=== PATIENT | female | born 1940 | race African-American/Black ===

== ENCOUNTER 2017-03-21 10:32 | Inpatient (IN) | payer MEDICARE, MEDICAID ==
[~2017-03-21] VITALS: Ht 157.5 cm; Wt 72.6 kg
[2017-03-21] MEDS ORDERED: NS 250 ML IV ONE (10:41)
[2017-03-21] MEDS ORDERED: MULTIVITAMINS1 EAC8 ORAL (10:45)
[2017-03-21] MEDS ORDERED: TRADJENTA5 MG PO (10:45)
[2017-03-21] MEDS ORDERED: LEVOTHYROXINE25 MCG ORAL (10:45)
[2017-03-21] MEDS ORDERED: METFORMIN HCL500 M1 ORAL (10:45)
[2017-03-21] MEDS ORDERED: AMARYL1 MG ORAL (10:45)
[2017-03-21] MEDS ORDERED: NAMENDA10 MG ORAL (10:45)
[2017-03-21] MEDS ORDERED: NORVASC5 MG ORAL (10:45)
[2017-03-21] MEDS ORDERED: CATAPRES0.1 MG ORAL (10:47)
[2017-03-21] MEDS ORDERED: BENADRYL25 MG ORAL (10:47)
[2017-03-21] MEDS ORDERED: RIVASTIGMINE1.5 MG PO (10:47)
[2017-03-21] MEDS ORDERED: FAMOTIDINE20 MG ORAL (10:47)
[2017-03-21 10:59] LABS: MEAN CORPUSCULAR HEMOGLOBIN 26.4 PG (27.0-31.0); MEAN CORPUSCULAR HGB CONC 30.6 G/DL (32.0-36.0); MEAN CORPUSCULAR VOLUME 86 FL (80-99); MEAN PLATELET VOLUME 14.1 FL (6.5-10.1); PLATELET COUNT 90 K/UL (150-450); RED CELL DISTRIBUTION WIDTH 13.4 % (11.6-14.8)
[2017-03-21 11:04] LABS: PROTHROMBIN TIME 10.2 SEC (9.30-11.50)
[2017-03-21 11:08] LABS: ALANINE AMINOTRANSFERASE 13 U/L (3-33); ANION GAP 14 (5-15); ASPARTATE AMINO TRANSFERASE 21 U/L (5-40); CARBON DIOXIDE 26 mEQ/L (20-30); CHLORIDE 99 mEQ/L (98-107); CREATININE 1.1 mg/dL (0.5-0.9); HEMOLYSIS 79; POTASSIUM 4.9 mEQ/L (3.4-4.9); SODIUM 139 mEQ/L (135-145); TOTAL PROTEIN 7.4 g/dL (6.6-8.7)
[2017-03-21 11:11] LABS: TROPONIN I < 0.30 ng/mL (<=0.30)
[2017-03-21 11:20] LABS: CKMB 2.9 ng/mL (< 3.8)
[2017-03-21 11:22] VITALS: BP 125/30
[2017-03-21 11:31] LABS: CALCIUM 9.5 mg/dL (8.6-10.2)
[2017-03-21 11:44] LABS: BASOPHILS % (MANUAL) 1 % (0-2); EOSINOPHILS % (MANUAL) 3 % (0-3); LYMPHOCYTES % (MANUAL) 21 % (20-45); NEUTROPHILS % (MANUAL) 70 % (45-75); PLATELET CLUMPS 2+; TOTAL CELLS COUNTED 100
[2017-03-21 11:45] LABS: ANISOCYTOSIS 1+; BAND NEUTROPHILS % (MANUAL) 0 % (0-8); PLATELET ESTIMATE ADEQUATE; PLATELET MORPHOLOGY NORMAL
[2017-03-21 11:46] LABS: HYPOCHROMASIA 1+
[2017-03-21 12:36] VITALS: BP 144/98
--- NOTE | 2017-03-21 13:32 | Diagnostic Imaging Report ---
Indication: Chest pain Technique: One view of the chest Comparison: none Findings: Lungs and pleural spaces are clear. Heart size is normal. Cholecystectomy clips are again demonstrated. No significant interim change Impression: No acute process
[2017-03-21 15:13] VITALS: BP 126/91
[2017-03-21] MEDS: metFORMIN 500mg tab ORAL SCH (16:30)
--- NOTE | 2017-03-21 16:36 | Emergency Room Report ---
History of Present Illness General Chief Complaint: Abnormal Labs Source: Medical Record Present Illness HPI 76-year-old female presents ED for evaluation. Patient noted to have low platelets on glass of blood work. [facility] in shelter. Patient referred here by PMD Dr. Baeza. On arrival patient showing no complaints. No signs of distress. No recent change in medications. No signs of head injury. No evidence of bruising. Patient has dementia and is unable to provide any additional history at this time. No other aggravating relieving factors. Denies any other associated symptoms Allergies: Coded Allergies: IODINE (Verified Allergy, Unknown, 03/21/17) SHELLFISH DERIVED (Verified Allergy, Unknown, 03/21/17) Uncoded Allergies: IV DYE (Allergy, Unknown, 03/21/17) Patient History Past Medical History: DM, HTN, CAD, dementia, psych hx Past Surgical History: none Pertinent Family History: none Social History: Denies: alcohol use, drug use, smoking Now: No Immunizations: UTD Reviewed Nursing Documentation: PMH: Agreed, PSxH: Agreed Nursing Documentation-PMH Past Medical History: No History, Except For Hx Cardiac Problems: Yes - Heart disease, hypercholesterolemia, cataract Hx Hypertension: Yes - Hypothyroidism Hx Diabetes: Yes History Of Psychiatric Problem: Yes - Scz, major depression Hx Neurological Problems: Yes - Alzheimer's disease, Dementia Hx Dementia: Yes Hx Alzheimer's Disease: Yes Review of Systems All Other Systems: negative except mentioned in HPI Physical Exam Vital Signs Date Time Temp Pulse Resp B/P Pulse Ox O2 Delivery O2 Flow Rate FiO2 03/21/17 10:26 98.2 72 16 134/54 99 Room Air Sp02 EP Interpretation: reviewed, normal General Appearance: no apparent distress, non-toxic, other - dementia Head: normocephalic, atraumatic Eyes: bilateral eye PERRL, bilateral eye normal inspection ENT: hearing grossly normal, normal pharynx, no angioedema, normal voice Neck: full range of motion, supple/symm/no masses Respiratory: chest non-tender, lungs clear, normal breath sounds, speaking full sentences Cardiovascular #1: regular rate, rhythm, no edema Cardiovascular #2: 2+ carotid (R), 2+ carotid (L), 2+ radial (R), 2+ radial (L) , 2+ dorsalis pedis (R), 2+ dorsalis pedis (L) Gastrointestinal: normal bowel sounds, non tender, soft, non-distended, no guarding, no rebound Rectal: deferred Genitourinary: normal inspection, no CVA tenderness Musculoskeletal: back normal, gait/station normal, normal range of motion, non- tender Neurologic: other - dementia Psychiatric: other - dementia Reflexes: 3+ bicep (R), 3+ bicep (L), 3+ tricep (R), 3+ tricep (L), 3+ knee (R) , 3+ knee (L) Skin: normal color, no rash, warm/dry, well hydrated Lymphatic: no adenopathy Medical Decision Making Diagnostic Impression: Primary Impression: Thrombocytopenia ER Course 76-year-old female presents ED for referral for abnormal labs. low platelet count Differential-thrombocytopenia, pancytopenia, anemia Patient placed on stretcher. After initial history and physical I ordered labs , IV fluids, chest x-ray Labs-no leukocytosis, hemoglobin/hematocrit stable, platelets 90, electrolytes okay Chest x-ray unremarkable Patient showing no signs of trauma or bruising. No signs of spontaneous bleeding. Case discussed with Dr. Baeza Diagnoses-thrombocytopenia Admitted to floor in serious condition Labs Test 03/21/17 10:45 White Blood Count 8.0 K/UL (4.8-10.8) Red Blood Count 5.00 M/UL (4.20-5.40) Hemoglobin 13.2 G/DL (12.0-16.0) Hematocrit 43.2 % (37.0-47.0) Mean Corpuscular Volume 86 FL (80-99) Mean Corpuscular Hemoglobin 26.4 PG (27.0-31.0) Mean Corpuscular Hemoglobin Concent 30.6 G/DL (32.0-36.0) Red Cell Distribution Width 13.4 % (11.6-14.8) Platelet Count 90 K/UL (150-450) Mean Platelet Volume 14.1 FL (6.5-10.1) Neutrophils (%) (Auto) % (45.0-75.0) Lymphocytes (%) (Auto) % (20.0-45.0) Monocytes (%) (Auto) % (1.0-10.0) Eosinophils (%) (Auto) % (0.0-3.0) Basophils (%) (Auto) % (0.0-2.0) Differential Total Cells Counted 100 Neutrophils % (Manual) 70 % (45-75) Lymphocytes % (Manual) 21 % (20-45) Monocytes % (Manual) 5 % (1-10) Eosinophils % (Manual) 3 % (0-3) Basophils % (Manual) 1 % (0-2) Band Neutrophils 0 % (0-8) Platelet Estimate Adequate Platelet Morphology Normal Clumped Platelets 2+ Red Blood Cell Morphology Hypochromasia 1+ Anisocytosis 1+ Sickle Cells Prothrombin Time 10.2 SEC (9.30-11.50) Prothromb Time International Ratio 1.0 (0.9-1.1) Activated Partial Thromboplast Time 23 SEC (23-33) Sodium Level 139 mEQ/L (135-145) Potassium Level 4.9 mEQ/L (3.4-4.9) Chloride Level 99 mEQ/L (98-107) Carbon Dioxide Level 26 mEQ/L (20-30) Anion Gap 14 (5-15) Blood Urea Nitrogen 20 mg/dL (7-23) Creatinine 1.1 mg/dL (0.5-0.9) Estimat Glomerular Filtration Rate mL/min (>60) Glucose Level 107 mg/dL (74-106) Calcium Level 9.5 mg/dL (8.6-10.2) Total Bilirubin 0.5 mg/dL (0.0-1.2) Aspartate Amino Transf (AST/SGOT) 21 U/L (5-40) Alanine Aminotransferase (ALT/SGPT) 13 U/L (3-33) Alkaline Phosphatase 56 U/L (35-104) Total Creatine Kinase 148 U/L (26-140) Creatine Kinase MB 2.9 ng/mL (< 3.8) Creatine Kinase MB Relative Index 1.9 Troponin I < 0.30 ng/mL (<=0.30) Total Protein 7.4 g/dL (6.6-8.7) Albumin 3.8 g/dL (3.5-5.2) Globulin 3.6 g/dL Albumin/Globulin Ratio 1.0 (1.0-2.7) Chest X-Ray Diagnostic Results EP Interpretation: Yes Findings: no consolidation, no effusion, no pneumothorax, no acute cardiopulmonary disease Number of Views: 1 Last Vital Signs Date Time Temp Pulse Resp B/P Pulse Ox O2 Delivery O2 Flow Rate FiO2 4/26/17 15:13 98.0 83 18 126/91 93 Room Air Status: improved Disposition: ADMITTED INPATIENT Condition: Serious Referrals: Alise Baeza MD (PCP) ROBY CUNNINGHAM M.D. Mar 21, 2017 16:36
[2017-03-21] MEDS: Exelon 1.5mg cap ORAL SCH (18:30)
[2017-03-21] MEDS ORDERED: [UNRECOGNIZED DRUG - REMARK] MISC PRN (20:00)
[2017-03-21 20:28] VITALS: BP 130/78
--- NOTE | 2017-03-22 00:28 | Consultation ---
DATE OF CONSULTATION: 03/21/2017 CONSULTING PHYSICIAN: Navi Douglas M.D. PAST HISTORY: This is a 64-year-old female. The patient has history of multiple medical problems including dementia, hypertension, CAD, and diabetes mellitus. During the evaluation, the patient was a poor historian and was unable to provide any history of impairment of cognition and memory attention. The patient presented with thrombocytopenia. She does not endorse any anxiety, agitation, or aggressive behavior. PAST PSYCHIATRIC HISTORY: History of dementia, has been treated with antipsychotics in the past. PAST MEDICAL HISTORY: Significant for diabetes mellitus, hypertension, and CAD. ALLERGIES: Iodine, shellfish, and IV dye. SUBSTANCE ABUSE HISTORY: No history of illicit drug use or alcohol. Nonsmoker. MENTAL STATUS EXAMINATION: The patient is confused and disoriented. Mood is neutral. Affect is constricted. Congruent with mood. Thought process is concrete. Thought content, no suicidal or homicidal ideation. ASSESSMENT: Lima I Dementia. Lima II Deferred. Lima III Thrombocytopenia. Lima IV Low Lima V Global assessment of functioning is 40. PLAN: 1. The patient is currently on no psychotropics. She is only on Namenda, which is not causing any thrombocytopenia. 2. We will continue to follow and readjust her medication. 3. Provide the patient with supportive therapy and reality orientation. Navi Douglas M.D. DR: JULES JOB#: [id number] CC:
[2017-03-22 00:30] VITALS: BP 127/90
--- NOTE | 2017-03-22 00:38 | History and Physical Report ---
DATE OF ADMISSION: 03/21/2017 REASON FOR ADMISSION: Thrombocytopenia. The patient is a very poor historian, cannot obtain history from the patient, has advanced dementia. At the assisted, the platelet is 49,000. Again, cannot obtain any history from the patient. PAST MEDICAL HISTORY: Hypertension, advanced dementia, GERD, NIDDM, and hypothyroidism. PAST SURGICAL HISTORY: Denies. MEDICATIONS: Multivitamin, metformin, Namenda, Tradjenta, Levoxyl, Amaryl, Pepcid, clonidine. ALLERGIES: Iodine, IV dye, and shellfish. SOCIAL HISTORY: Unable to obtain. FAMILY HISTORY: Unable to obtain. REVIEW OF SYSTEMS: Unable to obtain. PHYSICAL EXAMINATION: VITAL SIGNS: Temperature 98.2 degrees, pulse 72 and blood pressure 134/55. HEENT: PERRLA. NECK: Supple. No lymphadenopathy. CHEST: Clear to auscultation. GASTROINTESTINAL: Soft, nontender and nondistended. No organomegaly. EXTREMITIES: No edema. NEUROLOGIC: Alert and oriented x3. Reflexes on both sides. LABORATORY AND DIAGNOSTIC DATA: WBC 18, hemoglobin 13.2, platelets of 90,000. Sodium 139, potassium 4.9, BUN of 20, creatinine 1.1 and glucose of 107. ASSESSMENT: Thrombocytopenia. The patient has been admitted for thrombocytopenia. Dr. Cartre has been consulted. Dr. Douglas for psychiatric treatment and education. Dr. Carter for etiology of the less platelets at this time. Alise Baeza M.D. DR: HENRY JOB#: [id number] CC:
[2017-03-22 04:00] VITALS: BP 126/77
[2017-03-22] MEDS: Glimepiride 1mg tab ORAL SCH (06:54)
[2017-03-22] MEDS: Levothyroxine 25mcg tab ORAL SCH (06:55)
[2017-03-22] MEDS: metFORMIN 500mg tab ORAL SCH ×3 (06:55→16:24)
[2017-03-22 07:20] LABS: MEAN CORPUSCULAR HEMOGLOBIN 27.2 PG (27.0-31.0); MEAN CORPUSCULAR HGB CONC 31.9 G/DL (32.0-36.0); MEAN CORPUSCULAR VOLUME 86 FL (80-99); MEAN PLATELET VOLUME 14.7 FL (6.5-10.1); PLATELET COUNT 68 K/UL (150-450); RED BLOOD COUNT 4.57 M/UL (4.20-5.40); RED CELL DISTRIBUTION WIDTH 13.4 % (11.6-14.8); WHITE BLOOD COUNT 7.5 K/UL (4.8-10.8)
[2017-03-22 08:00] VITALS: BP 110/71
[2017-03-22] MEDS: Memantine 10mg tab ORAL SCH (08:03)
[2017-03-22] MEDS: Exelon 1.5mg cap ORAL SCH ×2 (08:03→17:12)
[2017-03-22 09:28] LABS: BAND NEUTROPHILS % (MANUAL) 0 % (0-8); BASOPHILS % (MANUAL) 0 % (0-2); EOSINOPHILS % (MANUAL) 0 % (0-3); LYMPHOCYTES % (MANUAL) 33 % (20-45); NEUTROPHILS % (MANUAL) 59 % (45-75); PLATELET ESTIMATE DECREASED; TOTAL CELLS COUNTED 100
[2017-03-22 09:29] LABS: PLATELET CLUMPS 1+
[2017-03-22 09:33] LABS: HYPOCHROMASIA 1+
--- NOTE | 2017-03-22 10:18 | General Progress Note ---
Assessment/Plan Problem List: (1) Thrombocytopenia ICD Codes: D69.6 - Thrombocytopenia, unspecified SNOMED: 385776269 (2) Abnormal laboratory test result ICD Codes: R89.9 - Unspecified abnormal finding in specimens from other organs , systems and tissues SNOMED: 789281107 Status: progressing Assessment/Plan low platelet will discuss w psych and heme/onc re etiology of low platlet Subjective ROS Limited/Unobtainable: Yes Constitutional: Reports: no symptoms Allergies: Coded Allergies: IODINE (Verified Allergy, Unknown, 03/21/17) SHELLFISH DERIVED (Verified Allergy, Unknown, 03/21/17) Uncoded Allergies: IV DYE (Allergy, Unknown, 03/21/17) Objective Last 24 Hour Vital Signs Date Time Temp Pulse Resp B/P Pulse Ox O2 Delivery O2 Flow Rate FiO2 03/22/17 08:03 74 110/71 03/22/17 08:00 97.2 74 18 110/71 97 Room Air 03/22/17 04:00 97.9 65 19 126/77 98 Room Air 03/22/17 00:30 98.7 84 19 127/90 96 Room Air 03/21/17 20:28 98.7 84 19 130/78 96 Room Air 03/21/17 15:13 98.0 83 18 126/91 93 Room Air 03/21/17 13:52 98.2 82 17 144/98 99 Room Air 03/21/17 12:36 98.2 82 17 144/98 99 Room Air 03/21/17 11:22 98.2 75 16 125/30 99 Room Air 03/21/17 10:26 98.2 72 16 134/54 99 Room Air Intake and Output 03/21/17 03/22/17 19:00 07:00 Intake Total 300 ml 360 ml Balance 300 ml 360 ml Intake Oral 300 ml 360 ml # Voids 1 # Bowel Movements 2 2 Laboratory Tests 03/21/17 10:45: White Blood Count 8.0, Red Blood Count 5.00, Hemoglobin 13.2, Hematocrit 43.2, Mean Corpuscular Volume 86, Mean Corpuscular Hemoglobin 26.4L, Mean Corpuscular Hemoglobin Concent 30.6L, Red Cell Distribution Width 13.4, Platelet Count 90L, Mean Platelet Volume 14.1H, Neutrophils (%) (Auto) , Lymphocytes (%) (Auto) , Monocytes (%) (Auto) , Eosinophils (%) (Auto) , Basophils (%) (Auto) , Differential Total Cells Counted 100, Neutrophils % (Manual) 70, Lymphocytes % ( Manual) 21, Monocytes % (Manual) 5, Eosinophils % (Manual) 3, Basophils % ( Manual) 1, Band Neutrophils 0, Platelet Estimate Adequate, Platelet Morphology Normal, Clumped Platelets 2+, Red Blood Cell Morphology , Hypochromasia 1+, Anisocytosis 1+, Sickle Cells , Prothrombin Time 10.2, Prothromb Time International Ratio 1.0, Activated Partial Thromboplast Time 23, Sodium Level 139, Potassium Level 4.9, Chloride Level 99, Carbon Dioxide Level 26, Anion Gap 14, Blood Urea Nitrogen 20, Creatinine 1.1H, Estimat Glomerular Filtration Rate , Glucose Level 107H, Calcium Level 9.5, Total Bilirubin 0.5, Aspartate Amino Transf (AST/SGOT) 21, Alanine Aminotransferase (ALT/SGPT) 13, Alkaline Phosphatase 56, Total Creatine Kinase 148H, Creatine Kinase MB 2.9, Creatine Kinase MB Relative Index 1.9, Troponin I < 0.30, Total Protein 7.4, Albumin 3.8 , Globulin 3.6, Albumin/Globulin Ratio 1.0 03/22/17 05:15: White Blood Count 7.5, Red Blood Count 4.57, Hemoglobin 12.4, Hematocrit 39.1, Mean Corpuscular Volume 86, Mean Corpuscular Hemoglobin 27.2, Mean Corpuscular Hemoglobin Concent 31.9L, Red Cell Distribution Width 13.4, Platelet Count 68L, Mean Platelet Volume 14.7H, Neutrophils (%) (Auto) , Lymphocytes (%) (Auto) , Monocytes (%) (Auto) , Eosinophils (%) (Auto) , Basophils (%) (Auto) , Differential Total Cells Counted 100, Neutrophils % (Manual) 59, Lymphocytes % ( Manual) 33, Monocytes % (Manual) 8, Eosinophils % (Manual) 0, Basophils % ( Manual) 0, Band Neutrophils 0, Platelet Estimate DecreasedL, Platelet Morphology , Clumped Platelets 1+, Hypochromasia 1+, Sickle Cells , Reticulocyte Count [Pending], Haptoglobin [Pending], Iron Level [Pending], Unsaturated Iron Binding [Pending], Ferritin [Pending], Vitamin B12 Level [ Pending], HIV (1&2) Antibody Rapid [Pending] Height (Feet): 5 Height (Inches): 2.00 Weight (Pounds): 160 General Appearance: confused Neck: supple Cardiovascular: normal rate Respiratory/Chest: lungs clear Abdomen: soft Alise Baeza MD Mar 22, 2017 10:18
--- NOTE | 2017-03-22 10:21 | Consultation ---
Consult Note Consult Note HEMATOLOGY CONSULT NOTE DOS: 03/21/17 REQ: TOY REASON FOR CONSULT: THROMBOCYTOPENIA ID: 76-year-old female presents ED for evaluation. Patient noted to have low platelets on glass of blood work, plt count was 49k. Patient resides in [facility]. Patient referred here by PMD Dr. Vaca. On arrival patient showing no complaints. No signs of distress. No recent change in medications. No signs of head injury. No evidence of bruising. Patient has dementia and is unable to provide any additional history at this time. No other aggravating relieving factors. Denies any other associated symptoms Allergies: IODINE (Verified Allergy, Unknown, 03/21/17) SHELLFISH DERIVED (Verified Allergy, Unknown, 03/21/17) IV DYE (Allergy, Unknown, 03/21/17) Past Medical History: DM, HTN, CAD, dementia, psych hx, cataract, hypothyroidism, major depression Past Surgical History: none Pertinent Family History: none Social History: Denies: alcohol use, drug use, smoking Now: No Immunizations: UTD ROS: completed and is negative Vital Signs Date Time Temp Pulse Resp B/P Pulse Ox O2 Delivery O2 Flow Rate FiO2 03/21/17 10:26 98.2 72 16 134/54 99 Room Air Sp02 EP Interpretation: reviewed, normal General Appearance: no apparent distress Head: normocephalic, atraumatic Eyes: bilateral eye PERRL, bilateral eye normal inspection Neck: full range of motion, supple/symm/no masses Respiratory: chest non-tender, lungs clear Cardiovascular: regular rate, rhythm, no edema Gastrointestinal: normal bowel sounds, non tender Rectal: deferred Genitourinary: normal inspection, no CVA tenderness Musculoskeletal: back normal, gait/station normal Neurologic: other - dementia Labs: reviewed Labs Test 03/21/17 10:45 White Blood Count 8.0 K/UL (4.8-10.8) Red Blood Count 5.00 M/UL (4.20-5.40) Hemoglobin 13.2 G/DL (12.0-16.0) Hematocrit 43.2 % (37.0-47.0) Mean Corpuscular Volume 86 FL (80-99) Mean Corpuscular Hemoglobin 26.4 PG (27.0-31.0) Mean Corpuscular Hemoglobin Concent 30.6 G/DL (32.0-36.0) Red Cell Distribution Width 13.4 % (11.6-14.8) Platelet Count 90 K/UL (150-450) Mean Platelet Volume 14.1 FL (6.5-10.1) Neutrophils (%) (Auto) % (45.0-75.0) Lymphocytes (%) (Auto) % (20.0-45.0) Monocytes (%) (Auto) % (1.0-10.0) Eosinophils (%) (Auto) % (0.0-3.0) Basophils (%) (Auto) % (0.0-2.0) Differential Total Cells Counted 100 Neutrophils % (Manual) 70 % (45-75) Lymphocytes % (Manual) 21 % (20-45) Monocytes % (Manual) 5 % (1-10) Eosinophils % (Manual) 3 % (0-3) Basophils % (Manual) 1 % (0-2) Band Neutrophils 0 % (0-8) Platelet Estimate Adequate Platelet Morphology Normal Clumped Platelets 2+ Red Blood Cell Morphology Hypochromasia 1+ Anisocytosis 1+ Sickle Cells Prothrombin Time 10.2 SEC (9.30-11.50) Prothromb Time International Ratio 1.0 (0.9-1.1) Activated Partial Thromboplast Time 23 SEC (23-33) Sodium Level 139 mEQ/L (135-145) Potassium Level 4.9 mEQ/L (3.4-4.9) Chloride Level 99 mEQ/L (98-107) Carbon Dioxide Level 26 mEQ/L (20-30) Anion Gap 14 (5-15) Blood Urea Nitrogen 20 mg/dL (7-23) Creatinine 1.1 mg/dL (0.5-0.9) Estimat Glomerular Filtration Rate mL/min (>60) Glucose Level 107 mg/dL (74-106) Calcium Level 9.5 mg/dL (8.6-10.2) Total Bilirubin 0.5 mg/dL (0.0-1.2) Aspartate Amino Transf (AST/SGOT) 21 U/L (5-40) Alanine Aminotransferase (ALT/SGPT) 13 U/L (3-33) Alkaline Phosphatase 56 U/L (35-104) Total Creatine Kinase 148 U/L (26-140) Creatine Kinase MB 2.9 ng/mL (< 3.8) Creatine Kinase MB Relative Index 1.9 Troponin I < 0.30 ng/mL (<=0.30) Total Protein 7.4 g/dL (6.6-8.7) Albumin 3.8 g/dL (3.5-5.2) Globulin 3.6 g/dL Albumin/Globulin Ratio 1.0 (1.0-2.7) Assessment: # Thrombocytopenia - new onset, has been in the 40-70k range which is unusually low for the patient, has been admitted before to [facility] and was within normal range. CXR does not show evidence for infection # CAD # Dementia # Psych hx # Cataract, hypothyroidism, major depression RECS: - will stop amlodpine and start lisinopril as is a possible culprit for low platelets - medications have been reviewed with the pharmacist - does not have evidence of an active infection - Imaging has been reviewed - Appreciate psych recs - Heparin induced ab test has been ordered - Appreciate consultation! Yovani Carter Mar 22, 2017 10:21
[2017-03-22 10:29] LABS: IRON 62 ug/dL (37-145); TOTAL IRON BINDING CAPACITY 270 ug/dL (250-400)
[2017-03-22 10:41] LABS: HEMOLYSIS 13
[2017-03-22 10:46] LABS: FERRITIN 116 ng/mL (13-150)
[2017-03-22 11:20] LABS: PATH BLOOD SMEAR/OMC SENT TO PATHOLOGIST; RETICULOCYTE COUNT 1.2 % (0.0-2.0)
[2017-03-22 20:14] VITALS: BP 140/63
--- NOTE | 2017-03-22 22:02 | General Progress Note ---
Assessment/Plan Assessment/Plan Assessment: # Thrombocytopenia - new onset, has been in the 40-70k range which is unusually low for the patient, has been admitted before to [facility] and was within normal range. CXR does not show evidence for infection # CAD # Dementia # Psych hx # Cataract, hypothyroidism, major depression RECS: - will stop amlodpine and start lisinopril as is a possible culprit for low platelets - medications have been reviewed with the pharmacist - does not have evidence of an active infection - Imaging has been reviewed - Appreciate psych recs - Heparin induced ab test has been ordered-pending - Appreciate consultation! Subjective Constitutional: Reports: no symptoms HEENT: Reports: no symptoms Cardiovascular: Reports: no symptoms Respiratory: Reports: no symptoms Gastrointestinal/Abdominal: Reports: no symptoms Genitourinary: Reports: no symptoms Neurologic/Psychiatric: Reports: no symptoms Endocrine: Reports: no symptoms Hematologic/Lymphatic: Reports: no symptoms Allergies: Coded Allergies: IODINE (Verified Allergy, Unknown, 03/21/17) SHELLFISH DERIVED (Verified Allergy, Unknown, 03/21/17) Uncoded Allergies: IV DYE (Allergy, Unknown, 03/21/17) Subjective pt in bed, demented, NAD Objective Last 24 Hour Vital Signs Date Time Temp Pulse Resp B/P Pulse Ox O2 Delivery O2 Flow Rate FiO2 03/22/17 20:14 98.2 73 20 140/63 97 Room Air 03/22/17 08:03 74 110/71 03/22/17 08:00 97.2 74 18 110/71 97 Room Air 03/22/17 04:00 97.9 65 19 126/77 98 Room Air 03/22/17 00:30 98.7 84 19 127/90 96 Room Air Intake and Output 03/21/17 03/22/17 19:00 07:00 Intake Total 300 ml 360 ml Balance 300 ml 360 ml Intake Oral 300 ml 360 ml # Voids 1 # Bowel Movements 2 2 Laboratory Tests 03/22/17 05:15: White Blood Count 7.5, Red Blood Count 4.57, Hemoglobin 12.4, Hematocrit 39.1, Mean Corpuscular Volume 86, Mean Corpuscular Hemoglobin 27.2, Mean Corpuscular Hemoglobin Concent 31.9L, Red Cell Distribution Width 13.4, Platelet Count 68L, Mean Platelet Volume 14.7H, Neutrophils (%) (Auto) , Lymphocytes (%) (Auto) , Monocytes (%) (Auto) , Eosinophils (%) (Auto) , Basophils (%) (Auto) , Differential Total Cells Counted 100, Neutrophils % (Manual) 59, Lymphocytes % ( Manual) 33, Monocytes % (Manual) 8, Eosinophils % (Manual) 0, Basophils % ( Manual) 0, Band Neutrophils 0, Platelet Estimate DecreasedL, Platelet Morphology , Clumped Platelets 1+, Hypochromasia 1+, Sickle Cells , Reticulocyte Count 1.2, Haptoglobin 148, Iron Level 62, Total Iron Binding Capacity 270, Percent Iron Saturation 23, Unsaturated Iron Binding 208, Ferritin 116, Vitamin B12 Level 576, HIV (1&2) Antibody Rapid Negative 03/22/17 21:15: Heparin-PF4 Antibody Screen [Pending], Hepatitis A IgM Antibody [Pending], Hepatitis B Surface Antigen [Pending], Hepatitis B Core IgM Antibody [Pending], Hepatitis C Antibody [Pending] Height (Feet): 5 Height (Inches): 2.00 Weight (Pounds): 160 General Appearance: WD/WN EENT: PERRL/EOMI Neck: non-tender Cardiovascular: normal peripheral pulses Respiratory/Chest: chest wall non-tender Abdomen: normal bowel sounds Edema: no edema noted Leg (L), no edema noted Leg (R), no edema noted Pedal (L) , no edema noted Pedal (R), no edema noted 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
[2017-03-23 04:00] VITALS: BP 124/76
[2017-03-23] MEDS: Glimepiride 1mg tab ORAL SCH (06:38)
[2017-03-23] MEDS: Levothyroxine 25mcg tab ORAL SCH (06:38)
[2017-03-23] MEDS: metFORMIN 500mg tab ORAL SCH ×2 (06:38→11:53)
[2017-03-23 08:00] VITALS: BP 107/83
[2017-03-23] MEDS ORDERED: Lisinopril 10mg tab ORAL SCH (09:00)
[2017-03-23] MEDS: Exelon 1.5mg cap ORAL SCH (09:16)
[2017-03-23] MEDS: Memantine 10mg tab ORAL SCH (09:16)
--- NOTE | 2017-03-23 11:00 | General Progress Note ---
Assessment/Plan Problem List: (1) Thrombocytopenia ICD Codes: D69.6 - Thrombocytopenia, unspecified SNOMED: 936763627 (2) Abnormal laboratory test result ICD Codes: R89.9 - Unspecified abnormal finding in specimens from other organs , systems and tissues SNOMED: 232442401 Status: progressing Assessment/Plan low platetet no bleeding afebrile dc to snf Subjective ROS Limited/Unobtainable: Yes Constitutional: Reports: no symptoms Allergies: Coded Allergies: IODINE (Verified Allergy, Unknown, 03/21/17) SHELLFISH DERIVED (Verified Allergy, Unknown, 03/21/17) Uncoded Allergies: IV DYE (Allergy, Unknown, 03/21/17) Objective Last 24 Hour Vital Signs Date Time Temp Pulse Resp B/P Pulse Ox O2 Delivery O2 Flow Rate FiO2 03/23/17 09:00 107/83 03/23/17 08:00 97.7 64 20 107/83 99 Room Air 03/23/17 04:00 98.6 20 124/76 95 Room Air 03/22/17 20:14 98.2 73 20 140/63 97 Room Air Intake and Output 03/22/17 03/23/17 19:00 07:00 Intake Total 440 ml 480 ml Balance 440 ml 480 ml Intake Oral 440 ml 480 ml # Voids 3 3 # Bowel Movements 2 2 Laboratory Tests 03/22/17 21:15: Heparin-PF4 Antibody Screen [Pending], Hepatitis A IgM Antibody [Pending], Hepatitis B Surface Antigen [Pending], Hepatitis B Core IgM Antibody [Pending], Hepatitis C Antibody [Pending] Height (Feet): 5 Height (Inches): 2.00 Weight (Pounds): 160 EENT: PERRL/EOMI Neck: supple Cardiovascular: normal rate Respiratory/Chest: lungs clear Alise Baeza MD Mar 23, 2017 11:00
[2017-03-23] MEDS ORDERED: LISINOPRIL5 MG ORAL (11:24)
[2017-03-23 12:21] VITALS: BP 123/72
--- NOTE | 2017-03-23 14:07 | General Progress Note ---
Assessment/Plan Assessment/Plan Assessment: # Thrombocytopenia - new onset, has been in the 40-70k range which is unusually low for the patient, has been admitted before to [facility] and was within normal range. CXR does not show evidence for infection # CAD # Dementia # Psych hx # Cataract, hypothyroidism, major depression RECS: - will stop amlodpine and start lisinopril as is a possible culprit for low platelets - medications have been reviewed with the pharmacist - does not have evidence of an active infection - Imaging has been reviewed - Appreciate psych recs - Heparin induced ab test has been ordered-pending - Appreciate consultation! Subjective Constitutional: Reports: no symptoms HEENT: Reports: no symptoms Cardiovascular: Reports: no symptoms Respiratory: Reports: no symptoms Gastrointestinal/Abdominal: Reports: no symptoms Genitourinary: Reports: no symptoms Neurologic/Psychiatric: Reports: no symptoms Endocrine: Reports: no symptoms Hematologic/Lymphatic: Reports: no symptoms Allergies: Coded Allergies: IODINE (Verified Allergy, Unknown, 03/21/17) SHELLFISH DERIVED (Verified Allergy, Unknown, 03/21/17) Uncoded Allergies: IV DYE (Allergy, Unknown, 03/21/17) Subjective NAD, no bleeding, no fevers, pt to be DC today Objective Last 24 Hour Vital Signs Date Time Temp Pulse Resp B/P Pulse Ox O2 Delivery O2 Flow Rate FiO2 03/23/17 12:21 97.5 74 19 123/72 98 Room Air 03/23/17 09:00 107/83 03/23/17 08:00 97.7 64 20 107/83 99 Room Air 03/23/17 04:00 98.6 20 124/76 95 Room Air 03/22/17 20:14 98.2 73 20 140/63 97 Room Air Intake and Output 03/22/17 03/23/17 19:00 07:00 Intake Total 440 ml 480 ml Balance 440 ml 480 ml Intake Oral 440 ml 480 ml # Voids 3 3 # Bowel Movements 2 2 Laboratory Tests 03/22/17 21:15: Heparin-PF4 Antibody Screen [Pending], Hepatitis A IgM Antibody [Pending], Hepatitis B Surface Antigen [Pending], Hepatitis B Core IgM Antibody [Pending], Hepatitis C Antibody [Pending] Height (Feet): 5 Height (Inches): 2.00 Weight (Pounds): 160 General Appearance: WD/WN, confused EENT: PERRL/EOMI Neck: non-tender Cardiovascular: normal peripheral pulses Respiratory/Chest: chest wall non-tender Abdomen: normal bowel sounds Edema: no edema noted Leg (L), no edema noted Leg (R), no edema noted Pedal (L) , no edema noted Pedal (R), no edema noted 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
--- NOTE | 2017-03-26 11:00 | Discharge Summary ---
Discharge Summary Hospital Course Date of Admission Mar 21, 2017 at 11:42 Date of Discharge Mar 23, 2017 at 14:30 Admitting Diagnosis THROMBOCYTOPENIA HPI Kika Hwang is a 76 year old female who was admitted on Mar 21, 2017 at 11:42 for Thrombocytopenia Hospital Course dc summary#[id number] Discharge Medications Continued Medications: Clonidine Hcl* (Catapres*) 0.1 Mg Tablet 0.1 MG ORAL EVERY 6 HOURS PRN for For High Blood Pressure, TAB Diphenhydramine Hcl* (Benadryl*) 25 Mg Capsule 25 MG ORAL Q8HR PRN for Itching, CAP Glimepiride* (Amaryl*) 1 Mg Tablet 1 MG ORAL with breakfast, TAB Levothyroxine Sodium* (Levothyroxine Sodium*) 25 Mcg Tablet 25 MCG ORAL DAILY, TAB Take in the morning on an empty stomach, at least 30 minutes before food. Memantine Hcl* (Namenda*) 10 Mg Tablet 10 MG ORAL DAILY, TAB Metformin Hcl* (Metformin Hcl*) 500 Mg Tablet 500 MG ORAL ACBREAKFAST, TAB Rivastigmine Tartrate (Rivastigmine) 1.5 Mg Capsule 1.5 MG PO BID, CAP Discontinued Medications: Amlodipine Besylate (Norvasc) 5 Mg Tablet 5 MG ORAL DAILY, TAB Famotidine (Famotidine) 20 Mg Tablet 20 MG ORAL TWICE A DAY, #60 TAB 0 Refills Linagliptin (Tradjenta) 5 Mg Tablet 5 MG PO DAILY, TAB Multivitamin With Minerals (Multivitamins With Minerals*) 1 Each Tablet 1 TAB ORAL DAILY, TAB Discharge Condition Upon Discharge: stable Discharge Disposition Patient was discharged to SNF/Subacute Facility(03) Discharge Diagnoses: Discharge Instructions Discharge Instructions Special Instructions I have been assigned to complete a D/C Summary on this account. I was not involved in the patient management Olivia Cabral NP ([facility]) March 26, 2017 11:00
--- NOTE | 2017-03-27 00:08 | Discharge Summary 2 SIG ---
DATE OF ADMISSION: 03/21/2017 DATE OF DISCHARGE: 03/23/2017 REASON FOR ADMISSION: 76-year-old female, resident of detention facility, was sent to the emergency room for evaluation for low platelets. Apparently, she had platelet count of 40 to 70, never happened before, new onset for this patient. No evidence of bleeding , no evidence of infection. Platelets in the emergency room were 90. The patient with underlying history of Alzheimer dementia, diabetes, hypertension. The patient was admitted for further management. ADMITTING DIAGNOSES: 1. Thrombocytopenia. 2. Diabetes. 3. Alzheimer dementia. 4. Hypertension. HOSPITAL COURSE: The patient was admitted. Hematology consult was requested. Per Hematology, thrombocytopenia with a new onset. No evidence of infection. All medications were reviewed with the pharmacist as to the potential for causing thrombocytopenia. Amlodipine was discontinued as a possible culprit for thrombocytopenia. Recommended lisinopril for blood pressure control if needed. Patient was normotensive without any antihypertensive medications. No evidence of infection. Chest x-ray showed no infiltrates. No heparin. Heparin induced antibody pending. Psychiatrist seen and evaluated the patient. Per psychiatrist notes, the patient was not on any psychiatric medication except Namenda. The patient has depression and Alzheimer dementia. Continue Namenda and provide reality orientation as needed. Blood sugar was managed with sliding scale of insulin , and was stable. The patient was [facility] to [facility] facility. No further drop in platelet count. Follow up with thrombocytopenia workup as an outpatient. DISCHARGE DIAGNOSES: 1. Thrombocytopenia, new onset. 2. Diabetes mellitus. 3. Alzheimer dementia. 4. Hypertension. 5. Major depression. DISCHARGE MEDICATIONS: See medication reconciliation list. DISCHARGE INSTRUCTIONS: The patient was discharged to detention facility. FOLLOWUP: Follow up with medical doctor at the facility. Thrombocytopenia workup as an outpatient to be continued. Alise Baeza M.D. I have been assigned to dictate discharge summary on this account and I was not involved in the patient's management. Olivia AgostoMontefiore Medical CenterErica N.PTatianna DR: PRIETO JOB#: [id number] CC: JARED
== END 2017-03-23 14:30 | DRG 813 ==
LOC: EDBD 10:32 → EMR 11:26 → 4W 11:42 → EDBEDREQ 12:00 → 4W 13:46
DX: D69.6 Thrombocytopenia, unspecified (principal); E11.9 Type 2 diabetes mellitus without complications; G30.9 Alzheimer's disease, unspecified; I10 Essential (primary) hypertension; F02.80 Dementia in other diseases classified elsewhere, unspecified severity, without behavioral disturbance, psychotic disturbance, mood disturbance, and anxiety; K21.9 Gastro-esophageal reflux disease without esophagitis; E03.9 Hypothyroidism, unspecified; Z88.8 Allergy status to other drugs, medicaments and biological substances; Z91.041 Radiographic dye allergy status; F32.9 Major depressive disorder, single episode, unspecified
CPT/HCPCS: 36415; 71010; 80053; 82550; 82553; 82607; 82728; 82962; 83010; 83540; 83550; 84484; 85007; 85025; 85044; 85060; 85610; 85730; 86703; 86705; 86709; 86803; 86850; 86900; 86901; 87081; 87340; 93005

== ENCOUNTER 2017-08-01 19:07 | Emergency (ER) | payer MEDICARE, MEDICAID ==
[~2017-08-01] VITALS: Ht 170.2 cm; Wt 63.5 kg
[~2017-08-01 19:07] MED LIST: AMARYL1 MG ORAL; BENADRYL25 MG ORAL; CATAPRES0.1 MG ORAL; FAMOTIDINE20 MG ORAL; LEVOTHYROXINE25 MCG ORAL; LISINOPRIL5 MG ORAL; METFORMIN HCL500 M1 ORAL; MULTIVITAMINS1 EAC8 ORAL; NAMENDA10 MG ORAL; NORVASC5 MG ORAL; RIVASTIGMINE1.5 MG PO; TRADJENTA5 MG PO
[2017-08-01] MEDS ORDERED: PEPCID20 MG ORAL (19:13)
[2017-08-01] MEDS ORDERED: NORVASC5 MG ORAL (19:13)
[2017-08-01 20:44] VITALS: BP 130/64
--- NOTE | 2017-08-01 20:59 | Emergency Room Report ---
History of Present Illness General Chief Complaint: Multiple Trauma/Fall Source: Patient Present Illness HPI 77 YO Female presents to the ED from SNF for head injury sustained this afternoon from a witnessed fall less than 4ft. per SNF pt was in wheelchair and foot was caught in wheel, and pt. was thrown to the ground sustaining a forehead contusion. NO LOC, not on blood thinning medications. pt. is Non- verbal with hx of Schizophrenia, DM type 2, GERD, hypothyroid, HTN, hyperlipidemia, and frequent falls. HPI and ROS limited due to pt. being non- verbal, information was obtained by SNF and pt. medical records. Dr. Fox is pt. PCP who called ED prior to TRAIN ATTENDANT. Allergies: Coded Allergies: IODINE (Verified Allergy, Unknown, 03/21/17) SHELLFISH DERIVED (Verified Allergy, Unknown, 03/21/17) Uncoded Allergies: IV DYE (Allergy, Unknown, 03/21/17) Patient History Limited by: medical condition Past Medical History: DM, HTN, dementia Past Surgical History: unable to obtain Pertinent Family History: unable to obtain Reviewed Nursing Documentation: PMH: Agreed, PSxH: Agreed Nursing Documentation-PMH Hx Cardiac Problems: Yes - Heart disease, hypercholesterolemia, cataract Hx Hypertension: Yes Hx Diabetes: Yes Hx Neurological Problems: Yes - dementia,alzhimers Hx Dementia: Yes Hx Alzheimer's Disease: Yes Review of Systems All Other Systems: limited - Pt is non-verbal. Physical Exam Vital Signs Date Time Temp Pulse Resp B/P (MAP) Pulse Ox O2 Delivery O2 Flow Rate FiO2 08/01/17 18:58 98.1 78 16 170/68 98 Room Air Sp02 EP Interpretation: reviewed, normal General Appearance: no apparent distress, alert, GCS 15, non-toxic Head: normocephalic, other - obvious 5cm hematoma to the right/middle forehead. Eyes: bilateral eye normal inspection, bilateral eye PERRL, bilateral eye other - no obvious lateral gaze, no blown pupils ENT: hearing grossly normal, normal voice, moist mucus membranes Neck: full range of motion, no bony tend, supple/symm/no masses Respiratory: lungs clear, normal breath sounds Cardiovascular #1: regular rate, rhythm, no edema Gastrointestinal: non tender, soft, no guarding, no rebound Rectal: deferred Musculoskeletal: back normal, non-tender, no calf tenderness, other - no erythema, swelling, bruising or abrasions to either feet, ankles, or calves, pt. only noted to have forehead hematoma/contusion Neurologic: alert, responsive, motor strength/tone normal Skin: normal color, no rash, warm/dry, well hydrated, other - hematoma of the forehead Medical Decision Making PA Attestation Dr. Vaughn is my supervising Physician whom patient management has been discussed with. Diagnostic Impression: Primary Impression: Forehead contusion Qualified Codes: S00.83XA - Contusion of other part of head, initial encounter Additional Impressions: Fall Qualified Codes: W19.XXXA - Unspecified fall, initial encounter Hematoma and contusion ER Course 77 YO Female presents to the ED from SNF for head injury sustained this afternoon from a witnessed fall less than 4ft. per SNF pt was in wheelchair and foot was caught in wheel, and pt. was thrown to the ground sustaining a forehead contusion. NO LOC, not on blood thinning medications. pt. is Non- verbal with hx of Schizophrenia, DM type 2, GERD, hypothyroid, HTN, hyperlipidemia, and frequent falls. HPI and ROS limited due to pt. being non- verbal, information was obtained by SNF and pt. medical records. Dr. Fox is pt. PCP who called ED prior to TRAIN ATTENDANT Ddx considered but are not limited to Fracture, dislocation, contusion, concussion Sprain/Strain/Spasm, hematoma, intracranial hemorrhage. Vital signs: are WNL, pt. is afebrile H&PE are most consistent with contusion, no evidence of focal neurological deficit, no loss of consciousness. ORDERS: -CT HEAD: Notable Atrophy, otherwise No acute process, no bleed - Per Official Radiology report. ED INTERVENTIONS: None Required at this time. DISCHARGE: At this time pt. is stable for d/c back to SNF, Ambulance transport is arranged. Will provide printed patient care instructions, and any necessary prescriptions. Care plan and follow up instructions have been discussed with the patient prior to discharge. Last Vital Signs Date Time Temp Pulse Resp B/P (MAP) Pulse Ox O2 Delivery O2 Flow Rate FiO2 08/01/17 20:44 98.1 81 18 130/64 99 Room Air Disposition: XFER SNF Condition: Stable Referrals: Alise Baeza MD (PCP) Patient Instructions: Contusion, [id number], Fall Prevention in Hospitals, Adult Additional Instructions: Take previously prescribed medications as directed. Follow up with a Primary Care Provider in 3-5 days, even if your symptoms have resolved. --Please review list of primary care clinics, if you do not already have a primary care provider Return sooner to ED if new symptoms occur, or current symptoms become worse. - Please note that this Emergency Department Report was dictated using [employer] search manager technology software, occasionally this can lead to erroneous entry secondary to interpretation by the dictation equipment. Taylor Beard Aug 01, 2017 20:59
[2017-08-01 21:57] VITALS: BP 121/85
[2017-08-01 21:59] VITALS: BP 121/85
--- NOTE | 2017-08-02 09:01 | Diagnostic Imaging Report ---
Indication: PAIN altered metal status Technique: spiral acquisitions obtained through the brain. Angled axial and coronal 5 x 5 mm slices were reconstructed. No IV contrast utilized. Radiation dose was minimized using automated exposure control Total dose length product 1003-79 mGycm. CTDIvol(s) 70 mGy Comparison: 05/21/2015 FINDINGS: No acute hemorrhage or edema. No mass effect or midline shift. There is age-related enlargement of the ventricles and extra axial CSF spaces. There is periventricular deep white matter ischemic change. Normal dobbs-white differentiation. Visualized orbits are unremarkable. Visualized sinuses are unremarkable. Intact calvarium. There is midline supraorbital scalp soft tissue swelling. No significant interim change otherwise IMPRESSION: Chronic and age-related changes. Negative for acute intracranial bleed or mass effect Evidence of frontal scalp soft tissue injury This agrees with the preliminary interpretation provided overnight by Dr. Sommers The CT scanner at [facility] is accredited by the [employer] and the scans are performed using protocols designed to limit radiation exposure to as low as reasonably achievable to attain images of sufficient resolution adequate for diagnostic evaluation
== END 2017-08-01 22:00 ==
LOC: EDBD 19:07 → EMR 19:32
DX: S00.83XA Contusion of other part of head, initial encounter (principal); W05.0XXA Fall from non-moving wheelchair, initial encounter; Y92.129 Unspecified place in nursing home as the place of occurrence of the external cause; I10 Essential (primary) hypertension; E11.9 Type 2 diabetes mellitus without complications; G30.9 Alzheimer's disease, unspecified; F02.80 Dementia in other diseases classified elsewhere, unspecified severity, without behavioral disturbance, psychotic disturbance, mood disturbance, and anxiety
CPT/HCPCS: 70450; 99284